=== PATIENT | female | born 1990 | race African-American/Black ===

== ENCOUNTER 2021-02-23 15:34 | Inpatient (IN) ==
[2021-02-23] MEDS ORDERED: MEPERIDINE 50 MG/1 ML VIAL IV PRN (16:15)
[2021-02-23] MEDS ORDERED: ONDANSETRON 4 MG/2 ML VIAL IV PRN (16:15)
[2021-02-23] MEDS ORDERED: BUTORPHANOL 2 MG/ML VIAL IV PRN (16:15)
[2021-02-23] MEDS ORDERED: LACTATED RINGERS 1,000 ML IV SCH (16:30)
[2021-02-23 16:35] LABS: Basophils % 0.3 % (0.0-0.8); Eosinophils # 0.1 10*3/uL (0.0-0.87); Eosinophils % 0.5 % (0.00-10.9); Hematocrit 35.3 VOL% (35.7-47.0); Hemoglobin 11.5 GM/DL (12.0-16.0); Immature Granulocytes % 0.6 %; Immature Granulocytes Absolute 0.06 #; Lymphocytes # 2.2 10*3/uL (1.4-4.0); Lymphocytes % 21.6 % (21.3-54.2); Mean Corpuscular HGB Conc 32.6 GM/DL (32-36); Mean Corpuscular Volume 88.7 FL (87-102); Mean Platelet Volume 10.2 FL (9.6-12.0); Monocytes % 8.5 % (1.7-12.7); Neutrophils % 68.5 % (38.7-73.9); Platelet Count 349 T/CUMM (130-400); Red Blood Count 3.98 MC/CUMM (3.8-5.5); Red Cell Distribution Width 14.8 % (9.3-17.3); White Blood Count 10.2 T/CUMM (4-12)
[2021-02-23] MEDS ORDERED: PROPRANOLOL 10 MG TABLET PO SCH ×2 (16:43→18:00)
[2021-02-23 16:50] LABS: INR 0.9; PT Patient Result 10.2 SECS (10.5-12.0); Partial Thromboplastin Time 28.8 SECS (23.8-32.1)
[2021-02-23 16:59] LABS: Bilirubin,Direct < 0.100 MG/DL (0.0-0.20); Uric Acid 5.2 MG/DL (2.6-6.0)
[2021-02-23 17:03] LABS: Alanine Aminotransferase 9 U/L (13-56); Albumin 2.5 G/DL (3.4-5.0); Alkaline Phosphatase 124 U/L (45-117); Aspartate Amino Transferase 11 U/L (0-37); Bilirubin,Total < 0.39 MG/DL (0.20-1.00); Blood Urea Nitrogen 6 MG/DL (7-18); Carbon Dioxide 22 MMOL/L (21-32); Estimated Glom Filtration Rate 195 ML/MIN; Glucose 109 MG/DL (74-106); Osmolality,Calculated 275.5 MOS/KG (273-304); Potassium 3.6 MMOL/L (3.5-5.1); Sodium 139 MMOL/L (136-145); Total Protein 6.7 G/DL (6.4-8.2)
[2021-02-24] MEDS ORDERED: OXYTOCIN/LR 20 UNIT/1,000 ML BAG IV SCH (02:00)
[2021-02-24] MEDS ORDERED: ePHEDrine 50 MG/ML VIAL IV PRN (02:04)
[2021-02-24] MEDS ORDERED: NALOXONE 0.4 MG/ML VIAL IV PRN (02:04)
[2021-02-24] MEDS ORDERED: hydrOXYzine HCL 25 MG/1 ML VIAL IM PRN (02:04)
[2021-02-24] MEDS ORDERED: diphenhydrAMINE 50 MG/1 ML VIAL IV PRN ×2 (02:04)
[2021-02-24] MEDS ORDERED: FAMOTIDINE 20 MG/2 ML VIAL IV ONE (02:04)
[2021-02-24] MEDS ORDERED: PROMETHAZINE 25 MG/1 ML VIAL IM ONE (02:04)
[2021-02-24] MEDS ORDERED: CITRIC ACID/SODIUM CITRATE 30 ML UDCUP PO ONE (02:04)
[2021-02-24] MEDS ORDERED: fentaNYL 2 MCG/ROPIV 0.2% EPID 100 ML EPIDURAL SCH (02:30)
[2021-02-24 04:12] LABS: Bilirubin,Urine Negative (Negative); Blood, Urine Negative (Negative); Glucose,Urine (UA) Negative (Negative); Ketones,Urine 5 mg/dL (Negative); Mucus,Urine Moderate /LPF (Occasional); Nitrite,Urine Negative (Negative); Protein,Urine 30 MG/DL; RBC,Urine 8 /HPF (0-4); Squamous Epithelial Cell,Urine Occasional /HPF (0-10); Urine Appearance CLEAR (Clear); Urine Color Yellow (Yellow); Urine Specific Gravity 1.021 (1.001-1.035); Urine Urobilinogen < 2.0 EU/DL (0.2-1.0)
[2021-02-24 04:28] LABS: Protein/Creatinine Ratio,Urine 0.3 RATIO
[2021-02-24] MEDS ORDERED: OXYTOCIN/LR 30 UNIT/1,000 ML BAG IV ONE (04:30)
[2021-02-24] MEDS ORDERED: METHYLERGONOVINE 0.2 MG/1 ML AMP IM PRN (04:33)
[2021-02-24] MEDS ORDERED: CARBOPROST TROMETHAMINE 250 MCG/ML AMP IM PRN (04:33)
[2021-02-24] MEDS ORDERED: TRANEXAMIC ACID 1,000 MG in SODIUM CHLORIDE 0.9% 100 ML IV PRN (04:34)
[2021-02-24] MEDS ORDERED: miSOPROStoL 200 MCG TABLET VAG PRN (04:35)
[2021-02-24] MEDS ORDERED: TRANEXAMIC ACID 1,000 MG/10 ML VIAL ONE (04:40)
[2021-02-24] MEDS ORDERED: SODIUM CHLORIDE 0.9% 0 ML IV ONE (04:41)
[2021-02-24] MEDS ORDERED: LIDOCAINE 1% 50 ML VIAL ONE (04:42)
[2021-02-24 06:16] LABS: Cord Arterial Blood HCO3 22.8 MMOL/L
[2021-02-24 06:17] LABS: Cord Venous Blood HCO3 24.8 MMOL/L; Cord Venous Blood PCO2 46.1 MMHG; Cord Venous Blood PO2 25.6 MMHG
[2021-02-24] MEDS ORDERED: ACETAMINOPHEN 325 MG TABLET PO PRN (06:21)
[2021-02-24] MEDS ORDERED: BENZOCAINE 20%/MENTHOL 0.5% SPRAY 56 GM CAN TOP PRN (06:21)
[2021-02-24] MEDS ORDERED: HYDROCORTISONE 2.5% RECTAL CREAM 30 GM TUBE TOP PRN (06:21)
[2021-02-24] MEDS ORDERED: oxyCODONE/ACETAMINOPHEN 5-325 MG TABLET PO PRN (06:21)
[2021-02-24] MEDS ORDERED: LANOLIN 50% CREAM 0.3 OZ TUBE TOP PRN (06:21)
[2021-02-24] MEDS ORDERED: DIPH/TET/ACEL PERT BOOSTER VACCINE 0.5 ML VIAL IM ONE (06:21)
[2021-02-24] MEDS ORDERED: RHO(D) IMMUNE GLOBULIN 300 MCG SYRINGE IM ONE (06:21)
[2021-02-24] MEDS ORDERED: WITCH HAZEL PADS 100/JAR TOP PRN (06:21)
[2021-02-24] MEDS ORDERED: ONDANSETRON 4 MG/2 ML VIAL IV PRN (06:21)
[2021-02-24] MEDS ORDERED: BISACODYL 10 MG SUPP RECTAL PRN (06:21)
[2021-02-24] MEDS ORDERED: MEASLES/MUMPS/RUBELLA VACCINE 0.5 ML VIAL SUBCUT ONE (06:21)
[2021-02-24] MEDS ORDERED: OXYTOCIN/LR 20 UNIT/1,000 ML BAG IV ONE (06:21)
[2021-02-24] MEDS: DOCUSATE SODIUM 100 MG CAPSULE PO SCH ×2 (08:42→21:41)
[2021-02-24] MEDS: PROPRANOLOL 10 MG TABLET PO SCH (08:42)
[2021-02-24] MEDS: IBUPROFEN 800 MG TABLET PO PRN ×2 (09:31→17:06)
[2021-02-24] MEDS: oxyCODONE/ACETAMINOPHEN 5-325 MG TABLET PO PRN (10:44)
[2021-02-24] MEDS: LORazepam 1 MG TABLET PO PRN (18:48)
[2021-02-25 13:27] LABS: Basophils % 0.2 % (0.0-0.8); Eosinophils # 0.1 10*3/uL (0.0-0.87); Eosinophils % 1.1 % (0.00-10.9); Hematocrit 31.3 VOL% (35.7-47.0); Immature Granulocytes % 0.5 %; Immature Granulocytes Absolute 0.05 #; Lymphocytes # 3.1 10*3/uL (1.4-4.0); Lymphocytes % 28.8 % (21.3-54.2); Mean Corpuscular HGB Conc 31.9 GM/DL (32-36); Mean Corpuscular Volume 89.7 FL (87-102); Mean Platelet Volume 10.1 FL (9.6-12.0); Monocytes % 7.8 % (1.7-12.7); Neutrophils % 61.6 % (38.7-73.9); Platelet Count 295 T/CUMM (130-400); Red Blood Count 3.49 MC/CUMM (3.8-5.5); Red Cell Distribution Width 15.2 % (9.3-17.3); White Blood Count 10.9 T/CUMM (4-12)
[2021-02-25] MEDS: PROPRANOLOL 10 MG TABLET PO SCH (13:31)
[2021-02-25] MEDS: DOCUSATE SODIUM 100 MG CAPSULE PO SCH ×2 (13:31→20:51)
[2021-02-25] MEDS: oxyCODONE/ACETAMINOPHEN 5-325 MG TABLET PO PRN ×2 (16:17→23:49)
[2021-02-25] MEDS: LORazepam 1 MG TABLET PO PRN (21:26)
[2021-02-26] MEDS: DOCUSATE SODIUM 100 MG CAPSULE PO SCH ×2 (07:27→08:22)
[2021-02-26] MEDS: PROPRANOLOL 10 MG TABLET PO SCH ×2 (07:27→08:23)
[2021-02-26 07:36] VITALS: BP 136/65
== END 2021-02-26 11:00 | disposition home or self-care (01) | DRG 806 ==
LOC: N.LDOUT 15:34 → N.LD 15:35 → N.OB 02-24 08:40
PROVIDERS: ADMIT Obstetrics & Gynecology; ATTEND Obstetrics & Gynecology